=== PATIENT | female | born 1960 | race Caucasian/White ===

== ENCOUNTER → 2019-01-09 | Outpatient (CLI) | payer OTHER, MEDICARE | END | disposition home or self-care (01) | LOC: CVU 10:50 | PROVIDERS: ATTEND Internal Medicine Cardiovascular Disease | DX: I08.8 Other rheumatic multiple valve diseases (principal); I70.0 Atherosclerosis of aorta; Z94.4 Liver transplant status | CPT/HCPCS: 0399T; 93306 ==